=== PATIENT | female | born 1955 | race Caucasian/White ===

== ENCOUNTER 2019-04-03 16:07 | Outpatient (CLI) | payer BC ==
--- NOTE | 2019-04-03 16:31 | RAD ---
Exam: XR Shoulder Lt 3 View STANDARD HISTORY: Left shoulder pain. COMPARISON: None FINDINGS: Tiny calcification is seen lateral to the left humeral head which could be attributable to calcific p eritendinitis. No acute fracture, dislocation, or other acute osseous abnormality is identified. IMPRESSION: No acute osseous abnormality is identified.
--- NOTE | 2019-04-03 16:34 | RAD ---
Exam: XR Wrist Rt 2 View HISTORY: Right wrist pain. Injury after fall. COMPARISON: None FINDINGS: There is evidence of a remote fracture nonunion involving the scaphoid bone with small and fragmented increased density proximal fracture fragment likely attributable to osteonecrosis. There is mild joint space narrowing involving the radiocarpal joint likely due to posttraumatic osteoarthritis. No acute fracture, dislocation, or other acute osseous abnormality is identified. IMPRESSION: 1. 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 2. No acute osseous abnormality.
== END 2019-04-03 16:08 | disposition home or self-care (01) ==
LOC: BICRAD 16:07
PROVIDERS: ATTEND Nurse Practitioner Family
DX: M25.512 Pain in left shoulder (principal); M25.531 Pain in right wrist; M19.131 Post-traumatic osteoarthritis, right wrist

== ENCOUNTER 2019-11-11 07:27 | Outpatient (CLI) | payer BC, OTHER ==
[2019-11-11 16:19] LABS: #Basophils 0.1 thou/uL (0.0-0.2); #Eosinphils 0.3 thou/uL (0.0-0.7); #Monocytes 0.5 thou/uL (0.11-0.59); #Neutrophils 3.5 thou/uL (1.40-6.50); %Basophils 1.2 % (0.0-1.0); %Eosinophils 3.6 % (0.0-10.0); %Lymphocytes 40.9 % (21.0-51.0); %Monocytes 7.3 % (0.0-10.0); Mean Corpuscular HGB CONC 34.8 g/dL (32.0-36.0); Mean Corpuscular Hemoglobin 31.7 pg (27.0-31.0); Mean Corpuscular Volume 91.3 fL (78.0-98.0); Mean Platelet Volume 8.6 fL (7.4-10.4); Platelet Count 268 thou/uL (130-400); RBC Distribution Width 12.1 % (11.5-14.5); Red Blood Cell (RBC) Count 4.72 mill/uL (4.20-5.40); White Blood Cell (WBC) Count 7.4 thou/uL (4.8-10.8)
[2019-11-11 16:38] LABS: Anion Gap 13 mmol/L (10-20); BUN (Urea Nitrogen) 13 mg/dL (9.8-20.1); Calc. Creatinine Clearance 0 mL/min (70-130); Carbon Dioxide 26 mmol/L (23-31); Chloride 106 mmol/L (98-107); Estimated GFR-MDRD 79; Glucose 131 mg/dL (80-115); Potassium 3.8 mmol/L (3.5-5.1); Sodium 141 mmol/L (136-145)
--- NOTE | 2019-11-12 07:09 | EKG ---
Test Reason : Blood Pressure : / mmHG Vent. Rate : 088 BPM Atrial Rate : 088 BPM P-R Int : 172 ms QRS Dur : 078 ms QT Int : 378 ms P-R-T Axes : 078 077 077 degrees QTc Int : 457 ms Normal sinus rhythm Normal ECG Confirmed by DR. Eder GUERRA ([id number]) on 11/12/2019 7:09:04 AM Referred By: CHRISTIANA Confirmed By:DR. Eder GUERRA
[2019-11-12 11:54] LABS: SARS-CoV-2 MS2 Positive; SARS-CoV-2 N Gene Negative; SARS-CoV-2 S Gene Negative; SARS-CoV-2 by NAA Not Detected (NotDetected); SARS-CoV-2 orf1ab Negative
== END 2019-11-11 07:28 | disposition home or self-care (01) ==
LOC: LABBT 07:27
PROVIDERS: ATTEND Orthopaedic Surgery
DX: Z01.818 Encounter for other preprocedural examination (principal); M75.112 Incomplete rotator cuff tear or rupture of left shoulder, not specified as traumatic; Z20.828 Contact with and (suspected) exposure to other viral communicable diseases
CPT/HCPCS: 80048; 85025; 87635; 93005; 93010; U0003

== ENCOUNTER 2019-11-14 06:10 | Day surgery (SDC) | payer BC ==
[2019-11-12 12:12] VITALS: BMI 28.1
[2019-11-14] MEDS ORDERED: Fentanyl 100 MCG/2 ML VIAL ONE ×2 (06:38→06:40)
[2019-11-14] MEDS ORDERED: Midazolam HCl 2 mg/2 ml Vial ONE (06:38)
[2019-11-14] MEDS ORDERED: Promethazine HCl 25 MG/ML VIAL IM PRN (07:45)
[2019-11-14] MEDS ORDERED: HYDROcodone/Acetaminophen 5/325 mg Tablet PO PRN ×2 (07:45)
[2019-11-14] MEDS ORDERED: Ketorolac Tromethamine 30 MG/ML VIAL IVP PRN (07:45)
[2019-11-14] MEDS ORDERED: traMADol HCl 50 MG TAB PO PRN ×2 (07:45)
[2019-11-14] MEDS ORDERED: Zolpidem Tartrate 5 MG TAB PO PRN (07:45)
[2019-11-14] MEDS ORDERED: Ondansetron PF 4 MG/2 ML Vial IVP PRN (07:45)
[2019-11-14] MEDS ORDERED: Ropivacaine 0.2% 550 ML 550 ML NERVE BLCK SCH (07:45)
[2019-11-14] MEDS ORDERED: Promethazine HCl 25 MG/ML VIAL ONE (09:27)
--- NOTE | 2019-11-14 10:04 | OP ---
DATE OF PROCEDURE: 11/14/2019 PREOPERATIVE DIAGNOSIS: Rotator cuff tear, left shoulder with impingement. POSTOPERATIVE DIAGNOSIS: Rotator cuff tear, left shoulder with impingement. PROCEDURES PERFORMED: Left shoulder arthroscopic subacromial decompression, arthroscopic rotator cuff repair. ANESTHESIA: General. BLOOD LOSS: Minimal. SPECIMENS: None. DRAINS: None. COMPLICATIONS: None. DESCRIPTION OF PROCEDURE: The patient was taken to the operating room, where general anesthesia was induced. The patient was placed in right lateral decubitus position. Left arm was prepped and draped in usual sterile fashion. The scope was placed in the glenohumeral joint, which was free of disease other than rotator cuff tear subacromial bursa. There was severe bursitis totally obscuring the entire subacromial space. I did a very extensive bursectomy, took down the CA ligament, decompressed the subacromial space, identified the rotator cuff tear, freshened the greater tuberosity. A single TWINFIX suture was placed through the defect. Sutures were tied with a good watertight repair, then reinforced with a double row type repair using a SwiveLock device. Shoulder was then drained. Portals were closed with nylon suture. Sterile dressings were applied. There were no complications. Job ID: [id number]
[2019-11-14] MEDS ORDERED: Ondansetron PF 4 MG/2 ML Vial ONE (10:57)
[2019-11-14] MEDS ORDERED: PROPOFOL 200 MG/20 ML VIAL ONE (10:57)
[2019-11-14] MEDS ORDERED: Ketorolac Tromethamine 30 MG/ML VIAL ONE (10:57)
[2019-11-14] MEDS ORDERED: Rocuronium Bromide 10 MG/ML (10ML VIAL) ONE (10:57)
[2019-11-14] MEDS ORDERED: EPHEDRINE 25 MG/5 ML SYRINGE ONE (10:57)
[2019-11-14] MEDS ORDERED: Dexamethasone 20 MG/5 ML VIAL ONE (10:57)
[2019-11-14] MEDS ORDERED: PHENYLEPHRINE-NS 100 MCG/ML 10 ML SYRINGE ONE (10:57)
[2019-11-14] MEDS ORDERED: Ropivacaine 0.5% HCl/PF (150 MG/30 ML VIAL) ONE (11:05)
[2019-11-14] MEDS ORDERED: Ropivacaine 0.2% HCl/PF (40 MG/20 ML VIAL) ONE (11:05)
[2019-11-14] MEDS ORDERED: HYDROcodone/Acetaminophen 5/325 mg Tablet ONE (13:31)
== END 2019-11-14 13:55 | disposition home or self-care (01) ==
LOC: SDC 06:10
PROVIDERS: ATTEND Orthopaedic Surgery
PROC: 0LQ24ZZ Repair Left Shoulder Tendon, Percutaneous Endoscopic Approach (ICD-10-PCS; principal; 2019-11-14)
PROC: 3E0T3BZ Introduction of Anesthetic Agent into Peripheral Nerves and Plexi, Percutaneous Approach (ICD-10-PCS; principal; 2019-11-14)
PROC: 0RNK4ZZ Release Left Shoulder Joint, Percutaneous Endoscopic Approach (ICD-10-PCS; principal; 2019-11-14)
DX: M75.112 Incomplete rotator cuff tear or rupture of left shoulder, not specified as traumatic (principal); E03.9 Hypothyroidism, unspecified; E78.5 Hyperlipidemia, unspecified; G89.18 Other acute postprocedural pain; Z79.899 Other long term (current) drug therapy
CPT/HCPCS: A4306; C1713; J0690; J1100; J1885; J2250; J2405; J2550; J2704; J2795; J3010